=== PATIENT | male | born 1995 | race Caucasian/White ===

== ENCOUNTER 2019-08-04 15:57 | Inpatient (IN) | payer MEDICAID ==
[~2019-08-04] VITALS: Ht 175.3 cm; Wt 87.3 kg
[2019-08-04] MEDS ORDERED: ESCI10TA PO (17:53)
[2019-08-04] MEDS ORDERED: HALOPERIDOL 5 MG TABLET PO PRN (18:00)
[2019-08-04 19:17] VITALS: BP 130/74
[2019-08-04] MEDS: LORazepam 2 MG TABLET PO PRN (21:19)
[2019-08-05 00:28] VITALS: BP 133/72
[2019-08-05] MEDS: ZOLPIDEM TARTRATE 10 MG TABLET PO PRN ×2 (00:32→20:43)
[2019-08-05] MEDS ORDERED: MAGNESIUM HYDROXIDE SUSPENSION 30 ML UDCUP PO PRN (08:15)
[2019-08-05] MEDS ORDERED: PETROLATUM,WHITE 28 GM JELLY TP PRN (08:15)
[2019-08-05] MEDS ORDERED: BACITRACIN 28.4 GM OINTMENT TP PRN (08:15)
[2019-08-05] MEDS ORDERED: OMEPRAZOLE 20 MG CAPSULE PO PRN (08:15)
[2019-08-05] MEDS ORDERED: ALBUTEROL SULFATE HFA 90 MCG/PUFF 8 GM INHALER IH PRN (08:15)
[2019-08-05] MEDS ORDERED: DOCUSATE SODIUM 100 MG CAPSULE PO PRN (08:15)
[2019-08-05] MEDS ORDERED: ONDANSETRON HCL 4 MG TABLET PO PRN (08:15)
[2019-08-05] MEDS ORDERED: CloNIDine HCL 0.1 MG TABLET PO PRN (08:15)
[2019-08-05] MEDS ORDERED: BENZOCAINE/MENTHOL LOZENGE MM PRN (08:15)
[2019-08-05] MEDS ORDERED: LOPERAMIDE HCL 2 MG CAPSULE PO PRN (08:15)
[2019-08-05 08:32] LABS: BASOPHILS % (AUTO) 0.4 % (0.0-2.0); EOSINOPHILS % (AUTO) 0.8 % (1.0-6.0); HEMATOCRIT 41.2 % (41-53); LYMPHOCYTES # (AUTO) 2.4 K/uL (1.0-4.8); LYMPHOCYTES % (AUTO) 27.7 % (22.0-44.0); MEAN CORPUSCULAR HEMOGLOBIN 29.8 pg (26.0-34.0); MEAN CORPUSCULAR HGB CONC 33.9 G/dL (31.0-37.0); MEAN CORPUSCULAR VOLUME 88 fL (80-100); MONOCYTES # (AUTO) 0.7 K/uL (0.1-1.0); MONOCYTES % (AUTO) 8.3 % (2.0-9.0); NEUTROPHILS # (AUTO) 5.3 K/uL (1.8-7.7); NEUTROPHILS % (AUTO) 62.8 % (40.0-70.0); PLATELET COUNT (AUTO) 158 K/uL (150-450); RED BLOOD CELL COUNT(AUTO) 4.68 MIL/uL (4.50-5.90); RED CELL DISTRIBUTION WIDTH 12.5 % (11.5-14.5)
[2019-08-05 08:33] LABS: HEMOGLOBIN A1C 5.1 % (4.5-6.2)
[2019-08-05 08:40] VITALS: BP 108/63
[2019-08-05 08:58] LABS: ALANINE AMINOTRANSFERASE 13 U/L (12-78); ALBUMIN 3.5 g/dL (3.4-5.0); ALKALINE PHOSPHATASE 72 U/L (46-116); ANION GAP 7 mmol/L (8-16); ASPARTATE AMINOTRANSFERASE 12 U/L (15-37); BILIRUBIN,TOTAL 0.4 mg/dL (0.1-1.0); CALCIUM, TOTAL 9.1 mg/dL (8.8-10.5); CARBON DIOXIDE 26 mmol/L (22-29); CHLORIDE 104 mmol/L (98-107); CHOL/HDL RATIO 3.6 (4.2-7.3); CHOLESTEROL 131 mg/dL (131-200); CREATININE 1.05 mg/dL (0.60-1.30); FREE T4 (FREE THYROXINE) 1.23 ng/dL (0.76-1.46); GLOMERULAR FILTR. RATE CALC > 60 mL/min (>60); GLUCOSE,RANDOM 100 mg/dL (70-110); HDL CHOLESTEROL 36 mg/dL (40-60); LDL CHOL (CALC.) 85 mg/dL (0-130); POTASSIUM 3.7 mmol/L (3.5-5.1); SODIUM SERUM 137 mmol/L (136-145); THYROID STIMULATING HORMONE 2.77 uIU/mL (0.36-3.74); TOTAL PROTEIN, SERUM 6.7 g/dL (6.4-8.2); TRIGLYCERIDES 50 mg/dL (15-150); UREA NITROGEN, BLOOD 16 mg/dL (7-18)
[2019-08-05 16:09] VITALS: BP 126/66
[2019-08-05] MEDS: LORazepam 2 MG TABLET PO PRN (16:11)
[2019-08-05] MEDS: QUEtiapine FUMARATE 25 MG TABLET PO SCH (20:33)
[2019-08-06] MEDS: LORazepam 2 MG TABLET PO PRN (00:17)
[2019-08-06] MEDS: MAG HYDROX/AL HYDROX/SIMETH ES 30 ML SUSPENSION UDCUP PO PRN ×2 (01:10→21:07)
[2019-08-06 03:03] VITALS: BP 124/68
[2019-08-06] MEDS: ESCITALOPRAM OXALATE 20 MG TABLET PO SCH (08:19)
[2019-08-06 09:42] VITALS: BP 107/68
[2019-08-06 16:16] VITALS: BP 114/70
[2019-08-06 16:50] VITALS: BP 112/75
[2019-08-06] MEDS: IBUPROFEN 600 MG TABLET PO PRN (16:50)
[2019-08-06] MEDS: QUEtiapine FUMARATE 25 MG TABLET PO SCH (20:07)
[2019-08-07 05:01] VITALS: BP 109/68
[2019-08-07 08:19] VITALS: BP 120/85
[2019-08-07] MEDS: ESCITALOPRAM OXALATE 20 MG TABLET PO SCH (08:28)
[2019-08-07 16:07] VITALS: BP 124/64
[2019-08-07] MEDS: ACETAMINOPHEN 325 MG TABLET PO PRN (16:48)
[2019-08-07] MEDS: QUEtiapine FUMARATE 100 MG TABLET PO SCH (20:05)
[2019-08-08 01:14] VITALS: BP 109/60
[2019-08-08] MEDS: ESCITALOPRAM OXALATE 20 MG TABLET PO SCH (08:02)
[2019-08-08 08:08] VITALS: BP 103/67
[2019-08-08 12:45] VITALS: BP 128/86
[2019-08-08] MEDS: IBUPROFEN 600 MG TABLET PO PRN (12:47)
[2019-08-08 16:03] VITALS: BP 123/78
[2019-08-08] MEDS: ACETAMINOPHEN 325 MG TABLET PO PRN (16:29)
[2019-08-08] MEDS: QUEtiapine FUMARATE 100 MG TABLET PO SCH (20:14)
[2019-08-08] MEDS: ZOLPIDEM TARTRATE 10 MG TABLET PO PRN (20:14)
[2019-08-09 06:30] VITALS: BP 114/75
[2019-08-09 08:10] VITALS: BP 111/53
[2019-08-09] MEDS: ESCITALOPRAM OXALATE 20 MG TABLET PO SCH (08:19)
[2019-08-09 18:08] LABS: GLUCOMETER DEV NAME(LOC) BV2S.; GLUCOSE,POINT OF CARE 199 MG/DL (70-110)
[2019-08-09 19:28] VITALS: BP 132/86
[2019-08-09] MEDS: QUEtiapine FUMARATE 100 MG TABLET PO SCH (20:13)
[2019-08-09] MEDS: LORazepam 2 MG TABLET PO PRN (22:02)
[2019-08-10 04:05] VITALS: BP 124/82
[2019-08-10 08:17] VITALS: BP 121/64
[2019-08-10] MEDS: ESCITALOPRAM OXALATE 20 MG TABLET PO SCH (08:19)
[2019-08-10] MEDS ORDERED: ESCI20TA PO (12:24)
[2019-08-10] MEDS ORDERED: QUET100T PO (12:25)
[2019-08-10 16:06] VITALS: BP 121/80
== END 2019-08-10 16:35 | disposition home or self-care (01) | DRG 751 ==
LOC: B2S 19:00 → OBSVTOIN 19:00 → B2S 19:02 → UNDOADMOB 19:02 → INTOOBSV 08-06 07:51 → OBSVTOIN 08-06 07:51 → B2S 08-09 22:16
PROVIDERS: ADMIT Psychiatry & Neurology Psychiatry; ATTEND Psychiatry & Neurology Psychiatry
DX: F33.2 Major depressive disorder, recurrent severe without psychotic features (principal); R45.851 Suicidal ideations; Z91.19 Patient's noncompliance with other medical treatment and regimen; G47.00 Insomnia, unspecified; K59.00 Constipation, unspecified; F41.9 Anxiety disorder, unspecified; R45.87 Impulsiveness; Z59.0 Homelessness
CPT/HCPCS: 83036; 84439; 84443; 87081